=== PATIENT | female | born 1960 | race Asian ===

== ENCOUNTER 2019-08-18 17:04 | Inpatient (IN) | payer MEDICAID, OTHER ==
[~2019-08-18] VITALS: Ht 162.6 cm; Wt 57.2 kg
[2019-08-18] MEDS ORDERED: MORPHINE SULFATE 4 MG/ML CPJ (NOT FOR IM USE) IV STA (18:05)
[2019-08-18] MEDS ORDERED: ONDANSETRON HCL 4MG/2ML INJ IV STA (18:05)
[2019-08-18] MEDS ORDERED: SODIUM CHLORIDE 0.9% 1,000 ML IV ONE (18:05)
[2019-08-18 19:16] LABS: BASOPHILS % 0.2 % (0.0-2.0); EOSINOPHILS % 0.3 % (0.0-5.0); HEMOGLOBIN. 14.5 g/dL (12.0-16.0); LYMPHOCYTES % 24.2 % (20.0-50.0); MEAN CORPUSCULAR HEMOGLOBIN 32.7 pg (28.0-32.0); MEAN CORPUSCULAR VOLUME 94.6 fL (81.0-99.0); MEAN PLATELET VOLUME 6.9 fl (7.4-10.4); MONOCYTES % 4.8 % (2.0-8.0); NEUTROPHILS % 70.5 % (40.0-76.0); PLATELET 231 x1000/uL (130-400); RED BLOOD CELL COUNT 4.44 mill/uL (4.2-5.4); RED CELL DISTRIBUTION WIDTH 12.7 % (11.6-14.6)
[2019-08-18 19:20] LABS: INR 1.1
[2019-08-18 19:23] LABS: CHLORIDE 108 mEq/L (98-107)
[2019-08-18] MEDS ORDERED: MORPHINE SULFATE 4 MG/ML CPJ (NOT FOR IM USE) IV NR (19:30)
[2019-08-18 23:10] VITALS: BP 145/87
[2019-08-19] VITALS: BP 127/83
[2019-08-19] MEDS ORDERED: ONDANSETRON HCL 4MG/2ML INJ IV PRN (00:15)
[2019-08-19] MEDS: MORPHINE SULFATE 2 MG/ML CPJ (NOT FOR IM USE) IV PRN ×4 (03:00→16:15)
[2019-08-19 04:00] VITALS: BP 141/85
[2019-08-19 06:43] LABS: BASOPHILS % 0.4 % (0.0-2.0); EOSINOPHILS % 0.7 % (0.0-5.0); HEMATOCRIT. 38.3 % (36.0-48.0); HEMOGLOBIN. 13.2 g/dL (12.0-16.0); LYMPHOCYTES % 24.5 % (20.0-50.0); MEAN CORPUSCULAR HEMOGLOBIN 32.4 pg (28.0-32.0); MEAN CORPUSCULAR VOLUME 93.9 fL (81.0-99.0); MONOCYTES % 6.4 % (2.0-8.0); PLATELET 201 x1000/uL (130-400); RED BLOOD CELL COUNT 4.08 mill/uL (4.2-5.4); RED CELL DISTRIBUTION WIDTH 12.4 % (11.6-14.6)
[2019-08-19 06:55] LABS: CHLORIDE 105 mEq/L (98-107)
[2019-08-19 08:00] VITALS: BP 153/90
[2019-08-19] MEDS: HYDROCODONE/ACETAMINOPHEN 5/325MG TABLET PO PRN ×3 (09:46→18:12)
[2019-08-19 16:02] VITALS: BP 131/80
[2019-08-19] MEDS: AMLODIPINE 5MG TABLET PO SCH (17:00)
[2019-08-19] MEDS ORDERED: ACETAMINOPHEN 325MG TABLET PO PRN (17:00)
[2019-08-19] MEDS: ENOXAPARIN 40MG/0.4ML SYR SUBCUT SCH (18:06)
[2019-08-19] MEDS ORDERED: HYDROCODONE/ACETAMINOPHEN 10/325MG TABLET PO PRN (18:30)
[2019-08-19] MEDS: MORPHINE SULFATE 4 MG/ML CPJ (NOT FOR IM USE) IV PRN ×2 (18:42→23:12)
[2019-08-19 20:00] VITALS: BP 150/92
[2019-08-20] VITALS: BP 155/96
[2019-08-20 00:17] LABS: CLARITY URINE CLEAR (CLEAR); COLOR URINE YELLOW (YELLOW); KETONES URINE NEGATIVE (NEGATIVE); LEUKOCYTE ESTERASE URINE NEGATIVE (NEGATIVE); NITRITE URINE NEGATIVE (NEGATIVE); OCCULT BLOOD URINE NEGATIVE (NEGATIVE); PROTEIN URINE NEGATIVE (NEGATIVE); SPECIFIC GRAVITY URINE 1.013 (1.005-1.030); UROBILINOGEN URINE 0.2 E.U./dL (0.2-1.0)
[2019-08-20] MEDS: MORPHINE SULFATE 4 MG/ML CPJ (NOT FOR IM USE) IV PRN ×4 (03:25→16:49)
[2019-08-20 04:00] VITALS: BP 152/92
[2019-08-20 08:00] VITALS: BP 144/90
[2019-08-20] MEDS: AMLODIPINE 5MG TABLET PO SCH (08:29)
[2019-08-20 12:00] VITALS: BP 142/90
[2019-08-20] MEDS ORDERED: HYDR-4009 MT (14:45)
[2019-08-20 16:00] VITALS: BP 138/80
[2019-08-20] MEDS: ENOXAPARIN 40MG/0.4ML SYR SUBCUT SCH (16:26)
[2019-08-20] MEDS ORDERED: OXYC-515 MT ×2 (16:42→17:34)
[2019-08-20 17:01] VITALS: BP 132/64
== END 2019-08-20 17:50 | disposition home or self-care (01) | DRG 347 ==
LOC: ER 17:04 → EDBEDREQ 18:08 → 6EST 20:02 → EDBEDREQSVC 20:15 → EDBEDREQ 20:15 → EDBEDREQTM 20:15 → ENRESERV 21:17
PROVIDERS: ADMIT Internal Medicine; ATTEND Internal Medicine
DX: S32.019A Unspecified fracture of first lumbar vertebra, initial encounter for closed fracture (principal); E87.8 Other disorders of electrolyte and fluid balance, not elsewhere classified; I10 Essential (primary) hypertension; W18.30XA Fall on same level, unspecified, initial encounter; Y93.89 Activity, other specified; Y92.89 Other specified places as the place of occurrence of the external cause; Y99.8 Other external cause status
CPT/HCPCS: 36415; 71045; 72131; 72148; 73502; 80048; 81003; 83036; 86850; 86900; 93005; 97161; 97166; 99285; C1893; J1650; J2270; J2405; J7030